=== PATIENT | male | born 1950 | race Asian ===

== ENCOUNTER 2019-03-12 07:22 | Day surgery (SDC) | payer OTHER ==
[2019-03-09 10:45] VITALS: BMI 20.7
[2019-03-12] MEDS ORDERED: ROPIVACAINE HCL 0.5% 30ML VIAL ONE (07:25)
[2019-03-12] MEDS ORDERED: MIDAZOLAM HCL 2 MG/2 ML SINGLE DOSE VIAL ONE (07:25)
[2019-03-12] MEDS ORDERED: PROPOFOL 20 ML ONE ×3 (08:32→09:09)
[2019-03-12] MEDS ORDERED: SUCCINYLCHOLINE CHLORIDE 200 MG/10 ML SYRINGE ONE (08:33)
[2019-03-12] MEDS ORDERED: ceFAZolin SODIUM 1 GM VIAL ONE (09:44)
[2019-03-12] MEDS ORDERED: PROMETHAZINE HCL 25 MG/1 ML VIAL IVPUSH PRN (10:13)
[2019-03-12] MEDS ORDERED: ONDANSETRON 4 MG/2 ML VIAL IVPUSH PRN (10:13)
--- NOTE | 2019-03-12 10:47 | HP ---
History & Physical Update - History History: No Change - Physical Physical: No Change - Assessment Assessment: No Change - Plan Plan: No Change (no change since visit on 03/11/19)
--- NOTE | 2019-03-12 10:53 | OP ---
Operative Note - Note: Operative Date: 03/12/19 Pre-Operative Diagnosis: left shoulder pain, limited ROM, impingement Operation: Left shoulder arthroscopy with FRANCO and SAD Post-Operative Diagnosis: Same as Pre-op Surgeon: Rajendra Michaels Manager Rn Case: Marta Nina Anesthesiologist/SPECIAL MACHINE STITCHER: Minh Lama Anesthesia: Local (block with sedation) Estimated Blood Loss (mls): 10 Fluid Volume Replaced (mls): 1,000 Operative Report Dictated: Yes
--- NOTE | 2019-03-12 10:54 | SURG ---
Surgery Care Consultant Note Care Consultant: Marta Nina PA-C Date of Service: 03/12/19 Diagnosis: left shoulder pain, limited ROM and impingement Procedure: Left shoulder arthroscopy with Manipulation under anesthesia and subacrominal decompression I was present for the entirety of the operative procedure. For further detail, please refer to operative report. Visit type - Case Type Case Type: Scheduled - Emergency Emergency Visit: No - New patient This patient is new to me today: Yes Date on this admission: 03/12/19
[2019-03-12 12:26] VITALS: BP 124/82; TEMP 98.2
--- NOTE | 2019-03-12 12:38 | OP ---
DATE OF OPERATION: 03/12/2019 PREOPERATIVE DIAGNOSIS: Impingement with rotator cuff tear and frozen left shoulder. POSTOPERATIVE DIAGNOSES: 1. Frozen left shoulder with adhesive capsulitis. 2. Extensive joint debris. 3. Impingement from the lateral clavicle including the articular portion. 4. Tearing of the glenoid labrum. 5. Impingement from the lateral acromion. 6. Tearing of the rotator cuff. PROCEDURES PERFORMED: 1. Manipulation of left shoulder under anesthesia with lysis and resection of adhesions. 2. Extensive joint debridement. 3. Lateral clavicular resection including the articular portion, a Navarro procedure. 4. Partial glenoid labral resection. 5. Acromioplasty. 6. Rotator cuff debridement for partial-thickness tearing. SURGEON: Carmelo Michaels MD DEVELOPMENT COACH: REYNA Sparks ANESTHESIA: Bradley Durán MD. TYPE OF ANESTHESIA: Interscalene block, regional anesthesia. DESCRIPTION OF PROCEDURE: The procedure consisted of the patient being brought into the operating room and gently transferred from the stretcher to the OR table with all bony prominences well padded. The patient was given intravenous antibiotics and copious irrigation throughout the procedure to minimize risk for infection. A complete risk, benefit, alternative discussion was conducted with the patient, which was inclusive of, but not limited to, infection, bleeding, , paralysis, increased pain, need for repeat surgery. Patient asked questions, understood the procedure, and desired to proceed with surgical treatment. Following the sterile preparation and draping of the left shoulder, an appropriate time-out was conducted, which was inclusive of, but not limited to, site of surgery, type of surgery, anesthesiologist, and surgeon. The patient had been placed in the left side up lateral decubitus position with all bony prominences well padded. A pillow was placed below the legs and a pillow between the legs to protect the neurovascular structures to the legs. A pneumatic conforming patient support was used to conform to the body. An axillary roll was used to protect the lower shoulder. The neck was kept in good alignment with the torso and observed by the anesthesiologist, and the face was protected throughout the surgery by the anesthesiologist. A gentle manipulation of the left shoulder was performed. The abduction initially was to 80 degrees, flexion to 85 degrees, extension 5 degrees, internal rotation 45 degrees, external rotation 5 degrees. Following the gentle flow manipulation of the left shoulder under anesthesia, abduction was to 165 degrees, flexion to 165 degrees, extension 30 degrees, internal rotation 85 degrees, external rotation 20 degrees. General traction had been applied of approximately 8 pounds using a traction device. The anterior, posterior, and lateral portals were used to introduce the arthroscope and arthroscopic instruments. The anterior portal had been fabricated using the inside out method over a transfer beth. The glenohumeral joint was evaluated. There were noted to be adhesions within the joint, which were lysed and resected allowing smoother movement to the shoulder. Anterior and posterior recesses were without loose body or plica. There was noted to be extensive joint debris, and an extensive joint debridement was performed. The biceps tendon and the middle glenohumeral ligament were evaluated and found to be intact. Rotator cuff on the articular side was noted to have a tear, which was probed and found to be partial thickness, and this was debrided using shaver and radiofrequency wand. The malt specifications control assistant held the arthroscope as I used the wand and shaver and was critical for safe surgical treament Glenoid labrum was found to have a tear, and a partial glenoid labral resection was performed. The shoulder joint was copiously irrigated, and our attention was turned to the subacromial space. There was noted to be impingement from the lateral clavicle, and this was debrided, and high-speed bur and shaver was used to resect the lateral clavicle with a wedge of bone thick anteriorly, thin posteriorly. There was noted to be inflamed, extensive bursal tissue, and a partial bursectomy was performed with resection of the inflamed bursal tissue. Rotator cuff on the bursal side was evaluated and found to be intact. Lateral clavicle including the articular portion was also creating impingement , and this was debrided, and high-speed bur and shaver were used to resect the lateral clavicle including the articular portion. The shoulder joint was then copiously irrigated with sterile saline irrigant. The wounds were closed with 4-0 undyed Vicryl followed by Steri-Strips, Xeroform, 4 x 4's, Combine, Elastoplast, and a shoulder immobilizer. The patient was then gently awoken from anesthesia without incident and transferred from the operating room to the recovery room in satisfactory condition. There were no intraoperative complications, and the patient tolerated the procedure well. CARMELO MICHAELS M.D. [id number] MTDD
[2019-03-12 12:41] VITALS: PULSE 64
--- NOTE | 2019-03-17 14:09 | PATH ---
Surgical Pathology Report Patient Name: GO DAMON Med. Rec. #: [id number] /Age/Gender: 1950 (Age: 69) / M Account: [id number] Location: [facility] AM[facility] Taken: 03/12/2019 Received: 03/12/2019 Reported: 03/17/2019 Physicians: Rajendra Michaels M.D. Specimen(s) Received SHAVINGS LEFT SHOULDER Clinical History Rotator cuff repair Final Diagnosis SHOULDER, LEFT, ARTHROSCOPIC SHAVINGS: FIBROCOLLAGENOUS TISSUE, SKELETAL MUSCLE AND SCANT CARTILAGE. Electronically Signed Marta Martin M.D. Gross Description Received in formalin, labeled "shavings left shoulder" is a 2.5 x 1.5 x 0.3 cm aggregate of light and dark larson, soft tissue. Washing Tub Operator tissue is submitted in one cassette. AE/03/15/2019 ebram/03/15/2019
== END 2019-03-12 13:15 | disposition home or self-care (01) ==
LOC: FASU 07:22 → EDBD 08:00 → FASU 13:15
PROVIDERS: ATTEND Orthopaedic Surgery
PROC: 0RQK4ZZ Repair Left Shoulder Joint, Percutaneous Endoscopic Approach (ICD-10-PCS; 2019-03-12)
PROC: 0PBB4ZZ Excision of Left Clavicle, Percutaneous Endoscopic Approach (ICD-10-PCS; 2019-03-12)
PROC: 0RBK4ZZ Excision of Left Shoulder Joint, Percutaneous Endoscopic Approach (ICD-10-PCS; 2019-03-12)
PROC: 0LQ24ZZ Repair Left Shoulder Tendon, Percutaneous Endoscopic Approach (ICD-10-PCS; principal; 2019-03-12 09:59)
DX: M75.112 Incomplete rotator cuff tear or rupture of left shoulder, not specified as traumatic (principal); M24.012 Loose body in left shoulder; M75.02 Adhesive capsulitis of left shoulder; M24.112 Other articular cartilage disorders, left shoulder; M75.41 Impingement syndrome of right shoulder
CPT/HCPCS: 88304-TC; 94760